=== PATIENT | male | born 1955 | race Caucasian/White ===

== ENCOUNTER 2019-02-21 12:03 | Emergency (ER) | payer BC, OTHER ==
[~2019-02-21] VITALS: Ht 193 cm; Wt 106.6 kg
[2019-02-21 12:09] VITALS: BP_SYST 135
--- NOTE | 2019-02-21 12:12 | NUR ---
Patient to ER bed 05 to gown for evaluation. Side rails up.
--- NOTE | 2019-02-21 12:16 | NUR ---
ER Dr. WARREN at bedside examining patient.
--- NOTE | 2019-02-21 12:19 | NUR ---
PATIENT CAME IN FOR REFIL ON RX. DR TOLD HIM THOSE MEDS CANT BE PRESCRIBED IN ER AND PATIENT STATES HE HAS APT TODAY. PATIENT IS AN ALCHOLOLIC AND HASNT TAKEN HIS MED IN 2 DAYS. PATIENT CALLED EARLIER FOR HELP SO BROUGHT PATIENT IN BECAUSE SHE WAS WORRIED. PATIENT STATES HE DRANK ALCOHOL AT 6AM THIS MORNING. PATIENT ALERT AND ORIENTED TO NAME, , PLACE AND KIND OF DATE.
--- NOTE | 2019-02-21 12:41 | NUR ---
ASKED PATIENT IF HE COULD PROVIDE US WITH URINE SAMPLE AND PATIENT SAID HE CANT. ASKED HIM WHY AT PATIENT SAID HE JUST CANT. ASKED PATIENT IF HE NEEDED WATER AND PATIENT DIDNT GIVE STRAIGHT ANSWER. GAVE PATIENT CUP OF WATER.
[2019-02-21 12:45] LABS: BASOPHILS # (AUTO) 0.1 K/uL (0.0-0.2); BASOPHILS % (AUTO) 1.5 % (0.0-2.0); EOSINOPHILS % (AUTO) 0.6 % (0.0-4.0); HEMATOCRIT 46.8 % (36-54); HEMOGLOBIN 15.8 g/dL (14.0-18.0); LYMPHOCYTES # (AUTO) 1.2 K/uL (1.0-5.5); LYMPHOCYTES % (AUTO) 18.8 % (20.5-51.5); MEAN CORPUSCULAR HEMOGLOBIN 30 pg (27-31); MEAN CORPUSCULAR HGB CONC 34 % (32-36); MEAN CORPUSCULAR VOLUME 90 fL (79.0-98.0); MONOCYTES # (AUTO) 0.2 K/uL (0.0-1.0); MONOCYTES % (AUTO) 3.3 % (1.7-9.3); NEUTROPHILS # (AUTO) 4.8 K/uL (1.8-7.7); NEUTROPHILS % (AUTO) 75.8 % (40.0-70.0); PLATELET COUNT (AUTO) 225 K/uL (130-430); RED BLOOD CELL COUNT(AUTO) 5.22 MIL/uL (4.2-6.2); RED CELL DISTRIBUTION WIDTH 12.9 % (9.0-15.0); WHITE BLOOD COUNT (AUTO) 6.3 K/uL (4.8-10.8)
[2019-02-21 12:47] LABS: CALCIUM 8.7 mg/dL (8.4-11.0); CREATININE 1.1 mg/dL (0.55-1.30); POTASSIUM 3.5 mmol/L (3.5-5.1)
[2019-02-21 12:50] LABS: INR 0.9 (0.80-1.20); PROTHROMBIN TIME 9.3 SECS (9.5-12.5)
[2019-02-21 12:51] LABS: ALBUMIN 3.8 g/dL (3.4-4.8); TOTAL BILIRUBIN 0.4 mg/dL (0.0-1.0)
[2019-02-21 13:44] VITALS: BP_SYST 131
--- NOTE | 2019-02-21 13:46 | NUR ---
Patient given written and verbal discharge instructions and verbalizes understanding. ER MD discussed with patient the results and treatment provided. Patient in stable condition. ID arm band removed. Rx of NONE given. Patient educated on pain management and to follow up with PMD. Pain Scale 0/10. Opportunity for questions provided and answered. Medication side effect fact sheet provided.
== END 2019-02-21 13:46 | disposition home or self-care (01) ==
LOC: SED 12:03
DX: F10.129 Alcohol abuse with intoxication, unspecified (principal); Z76.0 Encounter for issue of repeat prescription; I10 Essential (primary) hypertension; Z86.79 Personal history of other diseases of the circulatory system
CPT/HCPCS: 36415; 80053; 85025; 85610; 99283; G0482